=== PATIENT | female | born 1995 | race Caucasian/White ===

== ENCOUNTER 2016-11-12 15:48 | Emergency (ER) | payer MEDICAID ==
[~2016-11-12] VITALS: Ht 167.6 cm; Wt 101.0 kg
[2016-11-12 15:49] VITALS: BP 123/80; PULSE 66; RESP 20; TEMP 99.2; O2SAT 97
[2016-11-12] MEDS ORDERED: SODIUM CHLOR 0.9% 1000 ML INJ 1,000 ML IV ONE (16:16)
[2016-11-12] MEDS ORDERED: diphenhydrAMINE HCL 50 MG/ML VIAL IVP ONE (16:30)
[2016-11-12] MEDS ORDERED: PROCHLORPERAZINE INJ 10 MG/2 ML VIAL IVP ONE (16:30)
--- NOTE | 2016-11-12 16:55 | PD ---
HPI Chief Complaint: Headache Time Seen by Provider: 16:51 Travel History International Travel<30 days: No Contact w/Intl Traveler<30days: No Traveled to known affect area: No History of Present Illness HPI 21-year-old female that presents to the ED for evaluation of migraine headache. Per patient she's had a history of migraines for most of her young life. Per patient for the past 2 weeks she's been having progressively worsening headaches. Per patient she has a family history of migraine headaches. Per patient he feels like a pressure on her forehead as well as on the back of the head. She states that she's been taking some eufb-ikr-jrqbyxy remedies with minimal relief. Per patient she suffers from insomnia which does not help. Per patient she denies any nausea or vomiting. She states that she hasn't numbness to her fingers bilaterally. Per patient the headache is not getting better even with [employer] educations. Apparently she also took a medication from her mother as she also suffers from headaches but she does not know what it is and he did not work. She has no allergies to medication. She states that she has an appointment with a neurologist in December. She denies any chest or shortness of breath. No fevers chills or sweats. No other medical issues. Pain per patient is 8 out of 10. Per patient she was told when she had an MRI of her head that she might have had a TIA in the past. She does not wear and she does not remember what she had. PFSH Past Medical History Cerebrovascular Accident: Yes Headaches: Yes Medical other: Yes (2014 spinal tap) Migraines: Yes Tetanus Vaccination: < 5 Years Influenza Vaccination: Yes ?: Not LMP: 10/18/16 Past Surgical History Appendectomy: Yes Social History Alcohol Use: Yes ([facility]) Tobacco Use: No Substance Use: No Allergies-Medications (Allergen,Severity, Reaction): Coded Allergies: No Known Allergies (Unverified , 11/12/16) Reported Meds & Prescriptions Reported Meds & Active Scripts Active Prochlorperazine Maleate 10 Mg Tab 10 Mg PO Q6H PRN Diclofenac Sodium DR (Diclofenac Sodium) 75 Mg Tabdr 75 Mg PO BID PRN Review of Systems Except as stated in HPI: all other systems reviewed are Neg Physical Exam Narrative GENERAL: SKIN: Warm and dry. HEAD: Atraumatic. Normocephalic. EYES: Pupils equal and round 4 mm reactive to light and accommodation. No scleral icterus. No injection or drainage. EOM intact bilaterally. ENT: No nasal bleeding or discharge. Mucous membranes pink and moist. Tongue is midline. No blood deviation. NECK: Trachea midline. No JVD. CARDIOVASCULAR: Regular rate and rhythm. RESPIRATORY: No accessory muscle use. Clear to auscultation. Breath sounds equal bilaterally. GASTROINTESTINAL: Abdomen soft, non-tender, nondistended. Hepatic and splenic margins not palpable. MUSCULOSKELETAL: Extremities without clubbing, cyanosis, or edema. No obvious deformities. Full range of motion of the upper and lower extremities bilaterally. No lumbar, thoracic, cervical spine tenderness to palpation. 2+ pulses bilaterally. Sensation intact bilaterally. NEUROLOGICAL: Awake and alert. No obvious cranial nerve deficits. Motor grossly within normal limits. Five out of 5 muscle strength in the arms and legs. Normal speech. PSYCHIATRIC: Appropriate mood and affect; insight and judgment normal. Data Data Last Documented VS Vital Signs Date Time Temp Pulse Resp B/P Pulse Ox O2 Delivery O2 Flow Rate FiO2 11/12/16 15:49 99.2 66 20 123/80 97 Room Air Orders Complete Blood Count With Diff (11/12/16 16:16) Basic Metabolic Panel (Bmp) (11/12/16 16:16) Ct Brain W/O Iv Contrast(Rout) (11/12/16 16:16) Iv Access Insert/Monitor (11/12/16 16:16) Prochlorperazine Inj (Compazine Inj) (11/12/16 16:30) Diphenhydramine Inj (Benadryl Inj) (11/12/16 16:30) Sodium Chlor 0.9% 1000 Ml Inj (Ns 1000 M (11/12/16 16:16) Ed Urine Pregnancytest Poc (11/12/16 16:16) Labs Laboratory Tests Test 11/12/16 16:30 White Blood Count 8.1 TH/MM3 Red Blood Count 5.74 MIL/MM3 Hemoglobin 12.4 GM/DL Hematocrit 39.0 % Mean Corpuscular Volume 67.9 FL Mean Corpuscular Hemoglobin 21.6 PG Mean Corpuscular Hemoglobin 31.8 % Concent Red Cell Distribution Width 15.8 % Platelet Count 279 TH/MM3 Mean Platelet Volume 9.4 FL Neutrophils (%) (Auto) 69.0 % Lymphocytes (%) (Auto) 21.8 % Monocytes (%) (Auto) 6.7 % Eosinophils (%) (Auto) 1.2 % Basophils (%) (Auto) 1.3 % Neutrophils # (Auto) 5.6 TH/MM3 Lymphocytes # (Auto) 1.8 TH/MM3 Monocytes # (Auto) 0.5 TH/MM3 Eosinophils # (Auto) 0.1 TH/MM3 Basophils # (Auto) 0.1 TH/MM3 CBC Comment DIFF FINAL Differential Comment Sodium Level 142 MEQ/L Potassium Level 3.9 MEQ/L Chloride Level 109 MEQ/L Carbon Dioxide Level 27.2 MEQ/L Anion Gap 6 MEQ/L Blood Urea Nitrogen 11 MG/DL Creatinine 0.73 MG/DL Estimat Glomerular Filtration 102 ML/MIN Rate Random Glucose 85 MG/DL Calcium Level 8.7 MG/DL MDM Medical Decision Making Medical Screen Exam Complete: Yes Emergency Medical Condition: Yes Medical Record Reviewed: Yes Interpretation(s) CBC & BMP Diagram 11/12/16 16:[address] 11/12/16 1616 Signed Impressions: Service Date/Time: Saturday, November 12, 2016 17:16 - CONCLUSION: Focal area of low density at the right caudate head and right anterior basal ganglia. This most closely resembles a subacute to chronic area of infarction. No acute hemorrhage or mass effect is seen. Paul Rasmussen MD Differential Diagnosis Migraine headache versus tension headache versus chronic headache versus ICH versus stroke Narrative Course 21-year-old female that presents to the ED for evaluation of headache. Patient was properly examined and was found to have signs and symptoms of unclear etiology. More likely tension headache and migraine headache secondary to a description of the headache. Patient does not appear to have any focal neurological deficits on exam. Her exam is benign. At this time because of her continuous headache and history of "TIAs "CT of the head and labs will be done. Patient was turned IV and given fluids as well as Compazine, Toradol and Benadryl. Labs and imaging showed what appears to be an old infarct which is known to the patient. Patient was reassured. Patient's headache is improved. This time her recommend outpatient follow-up with neurologist. Patient already has an appointment in December and I recommend that she continues with this follow -up appointment. Patient will be given a prescription for Compazine and diclofenac sodium. Close follow with PCP. See ED worsening symptoms. Diagnosis Primary Impression: Cephalgia Qualified Code: G44.209 - Acute non intractable tension-type headache Patient Instructions: General Instructions Additional Instructions: Take medication as prescribed. Follow-up with PCP. Do not drive or drink alcohol if taking pain medications. Follow-up with your neurologist. See ED for any worsening symptoms. Med/Other Pt SpecificInfo: Prescription(s) given Scripts Prochlorperazine Maleate 10 Mg Tab10 Mg PO Q6H PRN (MIGRAINE HEADACHE) #10 TAB Ref 0 Prov:Tasha Veloz MD 11/12/[address] 75 Mg Tabdr75 Mg PO BID PRN (PAIN SCALE 1 TO 10) #20 TAB Prov:Tasha Veloz MD 11/12/16 Disposition: 01 DISCHARGE HOME Condition: Stable Vince Barrientos Nov 12, 2016 16:55
[2016-11-12 17:00] LABS: AUTOMATED NEUTROPHIL # 5.6 TH/MM3 (1.8-7.7); BASOPHIL # 0.1 TH/MM3 (0-0.2); BASOPHIL % 1.3 % (0.0-2.0); EOSINOPHIL # 0.1 TH/MM3 (0-0.4); EOSINOPHIL % 1.2 % (0.0-4.0); HEMO FLAGS DIFF FINAL; LYMPH % 21.8 % (9.0-44.0); LYMPHOCYTE # 1.8 TH/MM3 (1.0-4.8); MEAN CELL VOLUME 67.9 FL (80.0-100.0); MEAN CORPUSCULAR HEMOGLOBIN 21.6 PG (27.0-34.0); MEAN CORPUSCULAR HGB CONC 31.8 % (32.0-36.0); MONO % 6.7 % (0.0-8.0); PLATELET COUNT 279 TH/MM3 (150-450); RED BLOOD COUNT 5.74 MIL/MM3 (4.00-5.30); RED CELL DISTRIBUTION WIDTH 15.8 % (11.6-17.2); WHITE BLOOD COUNT 8.1 TH/MM3 (4.0-11.0)
[2016-11-12 17:23] LABS: BICARBONATE 27.2 MEQ/L (21.0-32.0); POTASSIUM 3.9 MEQ/L (3.5-5.1)
--- NOTE | 2016-11-12 17:36 | RADRPT ---
EXAM DATE/TIME: 11/12/2016 17:16 [facility] COMPARISON: No previous studies available for comparison. INDICATIONS : Headache for 2 weeks. RADIATION DOSE: 38.04 CTDIvol (mGy) MEDICAL HISTORY : Cerebrovascular disease. SURGICAL HISTORY : Appendectomy. ENCOUNTER: Initial ACUITY: 1 week PAIN SCALE: 5/10 LOCATION: Bilateral cranial TECHNIQUE: Multiple contiguous axial images were obtained of the head. Using automated exposure control and adj ustment of the mA and/or kV according to patient size, radiation dose was kept as low as reasonably a chievable to obtain optimal diagnostic quality images. DICOM format image data is available electro nically for review and comparison. FINDINGS: CEREBRUM: There is an area of low density seen in the right caudate head and extending into the anterior aspect of the right basal ganglia. There some mild expansion of the frontal horn right lateral ventricle in response to this. The ventricles are otherwise normal for age. No evidence of midline shift, mass l esion, hemorrhage or acute infarction. No extra-axial fluid collections are seen. POSTERIOR FOSSA: The cerebellum and brainstem are intact. The 4th ventricle is midline. The cerebellopontine angle i s unremarkable. EXTRACRANIAL: The visualized portion of the orbits is intact. SKULL: The calvaria is intact. No evidence of skull fracture. CONCLUSION: Focal area of low density at the right caudate head and right anterior basal ganglia. This most close ly resembles a subacute to chronic area of infarction. No acute hemorrhage or mass effect is seen. Paul Rasmussen MD on November 12, 2016 at 17:28 Board Certified Radiologist. This report was verified electronically.
[2016-11-12] MEDS ORDERED: DICL75TA PO (17:44)
[2016-11-12] MEDS ORDERED: PROC10TA PO (17:44)
[2016-11-12 17:49] VITALS: BP 110/70
== END 2016-11-12 18:13 | disposition home or self-care (01) ==
LOC: NEPE 15:48
DX: G44.209 Tension-type headache, unspecified, not intractable (principal)
CPT/HCPCS: 70450; 80048; 84703; 85025; 96361; 96374; 96375; 99285; J0780; J1200; J7030